=== PATIENT | female | born 1935 | race Caucasian/White ===

== ENCOUNTER 2020-08-16 14:16 | Outpatient (CLI) | payer MEDICARE ==
--- NOTE | 2020-08-16 16:04 | CT ---
Exam: Abdomen CT with and without contrast Pelvic CT with and without contrast HISTORY: Recurrent urinary tract infection and hematuria. Bladder lift. COMPARISON: None TECHNIQUE: Abdomen and pelvic CT is performed with and without contrast following urogram protocol. C oronal reformatted images are submitted for interpretation FINDINGS: Lung bases: Scattered groundglass opacities are nonspecific. Correlate patient's COVID status. Heart: Normal heart size. No significant pericardial fluid. Aorta: Normal caliber aorta. Scattered atherosclerotic disease. Liver: Appropriate enhancement. No enhancing masses. Spleen: Appropriate enhancement Pancreas: Appropriate enhancement Adrenal glands: Symmetric enhancement Lymph nodes: No gastrohepatic, retrocrural or periportal lymphadenopathy Portal vein: Patent Gallbladder: Unremarkable Kidneys: Noncontrast: Nonobstructing bilateral intrarenal calculi measuring 2 to 3 mm. No evidence of obstruct mindy uropathy. Contrast: Symmetric enhancement of the kidneys. There are no solid renal masses. Delayed: Symmetric excretion into a decompressed intrarenal and extrarenal collecting system. Contras t opacifies a good portion of the left and right ureter. No filling defects. Mesentery: No mass, nephropathy, free air or free fluid Alimentary canal: Limited evaluation of the alimentary canal by the lack of oral contrast. There is a moderate hiatal hernia. Multiple normal caliber small bowel loops. Normal ileocecal junction. Scattered fecal material in a nondistended, nondilated colon. Occasional diverticulum. No diverticuli tis. CT PELVIS: Reproductive organs and pelvis: Moderately enlarged prostate gland. Urinary bladder: There is a left-sided diverticulum, measuring 0.9 cm. There is mild enhancement of t he urinary bladder mucosa. On the delayed images, contrast is noted in the dependent portion of the urinary bladder. There is a linear hypodensity involving the bladder, starting along the posterior ba se of the bladder. The possibility of intraluminal lesion is raised. Cystoscopy is recommended. There is asymmetric thickening of the left mucosal and serosal margin of the bladder, at the level of the diverticulum. There are no lytic or blastic lesions in the osseous structures. 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 There is grade 1-2 anterolisthesis of L4 upon L5. There is mild leftward curvature of the lumbar spine. IMPRESSION: 1. Asymmetric mucosal prominence involving the left aspect of the urinary bladder. There appears to b e filling defect on the delayed images. Lesion within the lumen of the bladder cannot be excluded. Cystoscopy is recommended. 2. No evidence of enhancing masses in the left or right renal cortex. Bilaterally no obstructive urop athy. 3. Moderate hiatal hernia. Transcribed Date/Time: 08/16/2020 4:27 PM
== END 2020-08-16 14:17 | disposition home or self-care (01) ==
LOC: BICCT 14:16
PROVIDERS: ATTEND Urology
DX: N39.0 Urinary tract infection, site not specified (principal); R31.29 Other microscopic hematuria; K44.9 Diaphragmatic hernia without obstruction or gangrene
CPT/HCPCS: 74178; 82565

== ENCOUNTER 2022-03-30 12:56 | Inpatient (IN) | payer MEDICARE ==
[2022-03-30 13:44] LABS: #Eosinphils 0.1 thou/uL (0.0-0.7); #Lymphocytes 1.8 thou/uL (1.20-3.40); #Monocytes 1.4 thou/uL (0.11-0.59); #Neutrophils 6.5 thou/uL (1.40-6.50); %Basophils 0.2 % (0.0-1.0); %Eosinophils 0.9 % (0.0-10.0); %Neutrophils 66.9 % (42.0-75.0); Hemoglobin 12.4 g/dL (12.0-16.0); Mean Corpuscular HGB CONC 33.1 g/dL (32.0-36.0); Mean Corpuscular Hemoglobin 31.1 pg (27.0-31.0); Mean Corpuscular Volume 94.1 fL (78.0-98.0); Mean Platelet Volume 7.8 fL (7.4-10.4); Platelet Count 258 thou/uL (130-400); RBC Distribution Width 13.4 % (11.5-14.5); White Blood Cell (WBC) Count 9.7 thou/uL (4.8-10.8)
[2022-03-30 13:58] LABS: ALT (SGPT) 18 U/L (8-55); AST (SGOT) 11 U/L (5-34); Albumin 3.5 g/dL (3.4-4.8); Alkaline Phosphatase 78 U/L (40-110); Anion Gap 16 mmol/L (10-20); BUN (Urea Nitrogen) 32 mg/dL (9.8-20.1); Bilirubin, Total 0.3 mg/dL (0.2-1.2); Calc. Creatinine Clearance 0 mL/min (70-130); Calcium 9.8 mg/dL (7.8-10.44); Carbon Dioxide 19 mmol/L (23-31); Chloride 91 mmol/L (98-107); Estimated GFR 47; Globulin 3.6 g/dL (2.4-3.5); Glucose 240 mg/dL (83-110); Potassium 4.7 mmol/L (3.5-5.1); Protein, Total 7.1 g/dL (5.8-8.1); Sodium 121 mmol/L (136-145)
[2022-03-30 14:23] LABS: Bilirubin Negative (Negative); Blood, Urine 3+ (Negative); Clarity Extra Turbid (Clear); Glucose, Urine (Dipstick) 500 mg/dL (Negative); Ketone, Urine 10 mg/dL (Negative); Leukocyte 500 Leu/uL (Negative); Nitrite Negative (Negative); Protein, Urine (Dipstick) 100 mg/dL (Neg-Trace); Specific Gravity, Urine 1.016 (1.002-1.036); Urobilinogen Normal mg/dL (Less than 2); pH, Urine 6.5 (5.0-9.0)
[2022-03-30 14:33] LABS: Bacteria/HPF 2+ HPF (None Seen); Squamous Epithelial 0-3 HPF (0-3); WBC/HPF Greater Than 50 HPF (0-3)
[2022-03-30] MEDS ORDERED: Acetaminophen 500 MG TAB ONE (14:34)
[2022-03-30] MEDS ORDERED: cefTRIAXone\\ROCEPHIN 2 GM VIAL ONE (15:39)
[2022-03-30 15:45] LABS: SARS-CoV-2 NAA Rapid Test Not Detected (NotDetected)
[2022-03-30] MEDS ORDERED: Acetaminophen 650 MG Suppository PR PRN (15:54)
[2022-03-30] MEDS ORDERED: Ondansetron ODT 4 MG TAB PO PRN (15:54)
[2022-03-30] MEDS ORDERED: Ondansetron PF 4 MG/2 ML Vial IVP PRN (15:54)
[2022-03-30] MEDS ORDERED: Nystatin Powder 15 GM BOT TOP PRN (15:58)
[2022-03-30] MEDS ORDERED: Sodium Chloride 0.9% 1,000 ML IV SCH (16:00)
[2022-03-30 16:35] LABS: Sodium 123 mmol/L (136-145)
[2022-03-30 17:39] VITALS: BMI 27.8
[2022-03-30 18:38] LABS: Sodium, Urine 61 mmol/L (Not Available); Urea Nitrogen, Random Urine 419 mg/dl
[2022-03-30] MEDS: Heparin 5,000 UNITS/ML VIAL SC SCH (20:42)
[2022-03-30] MEDS: Miconazole 2% Cream 30 GM TUBE TOP SCH (20:45)
[2022-03-30] MEDS: Clotrimazole 2% 3 Day Vag Cr 22.2 GM TUBE VAG SCH (20:45)
[2022-03-30] MEDS ORDERED: Dextrose 50% Abboject 50 ML SYRINGE SLOW IVP PRN (21:32)
[2022-03-30] MEDS ORDERED: Dextrose 5% in Water 1,000 ML IV PRN (21:32)
[2022-03-30] MEDS: HumaLOG 300 UNITS/3 ML VIAL SC PRN (21:44)
[2022-03-30] MEDS: Acetaminophen 325 MG TAB PO PRN (21:45)
[2022-03-30 22:42] LABS: Sodium 124 mmol/L (136-145)
[2022-03-31] MEDS: HumaLOG 300 UNITS/3 ML VIAL SC PRN ×4 (05:18→21:11)
[2022-03-31 05:51] LABS: Anion Gap 14 mmol/L (10-20); BUN (Urea Nitrogen) 24 mg/dL (9.8-20.1); Calc. Creatinine Clearance 51 mL/min (70-130); Calcium 9.4 mg/dL (7.8-10.44); Carbon Dioxide 21 mmol/L (23-31); Chloride 94 mmol/L (98-107); Estimated GFR 63; Glucose 230 mg/dL (83-110); Potassium 4.2 mmol/L (3.5-5.1); Sodium 125 mmol/L (136-145)
[2022-03-31 06:02] LABS: Band 8 % (5-11); Eosinophils 1 % (0-10); Hemoglobin 12.8 g/dL (12.0-16.0); Lymphocytes 10 % (21-51); MDiff Complete? YES; Mean Corpuscular HGB CONC 32.6 g/dL (32.0-36.0); Mean Corpuscular Hemoglobin 30.5 pg (27.0-31.0); Mean Corpuscular Volume 93.5 fL (78.0-98.0); Mean Platelet Volume 7.9 fL (7.4-10.4); Monocytes 20 % (0-10); Neutrophil 59 % (42-75); Nucleated RBC 1 % (0); Platelet Count 273 thou/uL (130-400); Platelet Morphology Comment Appears Adequate; RBC Distribution Width 13.4 % (11.5-14.5); RBC Morphology Normal; Reactive Lymphocytes 2 % (0-10); Red Blood Cell (RBC) Count 4.19 mill/uL (4.20-5.40); White Blood Cell (WBC) Count 8.3 thou/uL (4.8-10.8)
[2022-03-31] MEDS: Fluconazole 100 MG TAB PO SCH (08:42)
[2022-03-31] MEDS: Heparin 5,000 UNITS/ML VIAL SC SCH ×2 (08:43→21:12)
[2022-03-31] MEDS: Acetaminophen 325 MG TAB PO PRN (08:44)
[2022-03-31] MEDS: Miconazole 2% Cream 30 GM TUBE TOP SCH ×2 (08:44→21:12)
[2022-03-31] MEDS ORDERED: HYDROcodone/Acetaminophen 5/325 mg Tablet PO PRN ×2 (09:28)
[2022-03-31] MEDS ORDERED: Primidone 50 MG TAB PO SCH (09:30)
[2022-03-31] MEDS ORDERED: Propranolol 10 MG TAB PO SCH (09:30)
[2022-03-31] MEDS ORDERED: Propranolol HCl LA 80 MG CAP PO SCH (09:30)
[2022-03-31 10:42] LABS: Sodium 124 mmol/L (136-145)
[2022-03-31] MEDS ORDERED: HYDROcodone/Acetaminophen 10/325 mg Tablet PO PRN (12:50)
[2022-03-31] MEDS: HYDROcodone/Acetaminophen 10/325 mg Tablet PO PRN ×2 (15:32→21:13)
[2022-03-31] MEDS: cefTRIAXone\\ROCEPHIN 1 GM in Sodium Chloride 0.9% 100 ML IVPB SCH (15:34)
[2022-03-31 18:14] LABS: Sodium 130 mmol/L (136-145)
[2022-03-31] MEDS: Clotrimazole 2% 3 Day Vag Cr 22.2 GM TUBE VAG SCH (21:11)
[2022-03-31] MEDS: Primidone 50 MG TAB PO SCH (21:12)
[2022-03-31] MEDS: traZODone HCl 50 MG TAB PO PRN (21:13)
[2022-03-31] MEDS: Propranolol 10 MG TAB PO SCH (21:29)
[2022-03-31 22:09] LABS: Sodium 129 mmol/L (136-145)
[2022-04-01 05:54] LABS: #Basophils 0.1 thou/uL (0.0-0.2); #Eosinphils 0.1 thou/uL (0.0-0.7); #Lymphocytes 1.8 thou/uL (1.20-3.40); #Monocytes 1.4 thou/uL (0.11-0.59); #Neutrophils 7.7 thou/uL (1.40-6.50); %Basophils 0.9 % (0.0-1.0); %Eosinophils 1.1 % (0.0-10.0); %Lymphocytes 16.4 % (21.0-51.0); %Monocytes 12.5 % (0.0-10.0); %Neutrophils 69.1 % (42.0-75.0); Hemoglobin 12.8 g/dL (12.0-16.0); Mean Corpuscular Hemoglobin 30.8 pg (27.0-31.0); Mean Corpuscular Volume 93.3 fL (78.0-98.0); Mean Platelet Volume 8.1 fL (7.4-10.4); Platelet Count 287 thou/uL (130-400); RBC Distribution Width 13.6 % (11.5-14.5); Red Blood Cell (RBC) Count 4.17 mill/uL (4.20-5.40); White Blood Cell (WBC) Count 11.1 thou/uL (4.8-10.8)
[2022-04-01] MEDS: HYDROcodone/Acetaminophen 10/325 mg Tablet PO PRN (06:06)
[2022-04-01 06:09] LABS: Anion Gap 15 mmol/L (10-20); BUN (Urea Nitrogen) 15 mg/dL (9.8-20.1); Calc. Creatinine Clearance 55 mL/min (70-130); Calcium 9.5 mg/dL (7.8-10.44); Carbon Dioxide 20 mmol/L (23-31); Chloride 96 mmol/L (98-107); Estimated GFR 69; Glucose 336 mg/dL (83-110); Potassium 4.4 mmol/L (3.5-5.1); Sodium 127 mmol/L (136-145)
[2022-04-01] MEDS: HumaLOG 300 UNITS/3 ML VIAL SC PRN ×2 (06:11→11:18)
[2022-04-01] MEDS: Acetaminophen 325 MG TAB PO PRN (08:13)
[2022-04-01] MEDS: Propranolol HCl LA 80 MG CAP PO SCH (08:58)
[2022-04-01] MEDS: Spironolactone 25 MG TAB PO SCH (08:58)
[2022-04-01] MEDS: Fluconazole 100 MG TAB PO SCH (08:58)
[2022-04-01] MEDS: Propranolol 10 MG TAB PO SCH ×2 (08:58→21:21)
[2022-04-01] MEDS: Aspirin Chewable 81 MG TAB PO SCH (08:58)
[2022-04-01] MEDS: Heparin 5,000 UNITS/ML VIAL SC SCH ×2 (08:58→21:22)
[2022-04-01] MEDS ORDERED: Simvastatin 10 MG TAB PO SCH (09:00)
[2022-04-01] MEDS: HYDROcodone/Acetaminophen 7.5/325 mg Tablet PO PRN ×3 (10:41→21:40)
[2022-04-01] MEDS: Miconazole 2% Cream 30 GM TUBE TOP SCH ×2 (10:45→21:27)
[2022-04-01] MEDS: Primidone 50 MG TAB PO SCH ×2 (11:11→21:22)
[2022-04-01] MEDS: cefTRIAXone\\ROCEPHIN 1 GM in Sodium Chloride 0.9% 100 ML IVPB SCH (14:19)
[2022-04-01] MEDS: traZODone HCl 50 MG TAB PO PRN (21:21)
[2022-04-01] MEDS: Clotrimazole 2% 3 Day Vag Cr 22.2 GM TUBE VAG SCH (21:26)
[2022-04-02] MEDS: HYDROcodone/Acetaminophen 7.5/325 mg Tablet PO PRN ×3 (04:48→20:56)
[2022-04-02 05:07] LABS: #Basophils 0.1 thou/uL (0.0-0.2); #Eosinphils 0.3 thou/uL (0.0-0.7); #Lymphocytes 2.6 thou/uL (1.20-3.40); #Monocytes 0.9 thou/uL (0.11-0.59); #Neutrophils 3.3 thou/uL (1.40-6.50); %Basophils 0.9 % (0.0-1.0); %Eosinophils 4.2 % (0.0-10.0); %Lymphocytes 35.8 % (21.0-51.0); %Monocytes 12.9 % (0.0-10.0); %Neutrophils 46.3 % (42.0-75.0); Mean Corpuscular HGB CONC 32.5 g/dL (32.0-36.0); Mean Corpuscular Hemoglobin 30.6 pg (27.0-31.0); Mean Corpuscular Volume 94.1 fL (78.0-98.0); Mean Platelet Volume 7.8 fL (7.4-10.4); Platelet Count 260 thou/uL (130-400); RBC Distribution Width 13.9 % (11.5-14.5); White Blood Cell (WBC) Count 7.2 thou/uL (4.8-10.8)
[2022-04-02 05:17] LABS: Anion Gap 19 mmol/L (10-20); BUN (Urea Nitrogen) 20 mg/dL (9.8-20.1); Calc. Creatinine Clearance 61 mL/min (70-130); Calcium 9.7 mg/dL (7.8-10.44); Carbon Dioxide 17 mmol/L (23-31); Chloride 99 mmol/L (98-107); Estimated GFR 78; Glucose 219 mg/dL (83-110); Potassium 4.7 mmol/L (3.5-5.1); Sodium 130 mmol/L (136-145)
[2022-04-02] MEDS: Fluconazole 100 MG TAB PO SCH (09:13)
[2022-04-02] MEDS: Spironolactone 25 MG TAB PO SCH (09:13)
[2022-04-02] MEDS: Propranolol HCl LA 80 MG CAP PO SCH (09:13)
[2022-04-02] MEDS: Aspirin Chewable 81 MG TAB PO SCH (09:13)
[2022-04-02] MEDS: Heparin 5,000 UNITS/ML VIAL SC SCH ×2 (09:14→20:58)
[2022-04-02] MEDS: Primidone 50 MG TAB PO SCH ×2 (09:52→20:56)
[2022-04-02] MEDS: Propranolol 10 MG TAB PO SCH ×2 (09:52→20:56)
[2022-04-02] MEDS: Miconazole 2% Cream 30 GM TUBE TOP SCH ×2 (09:53→20:58)
[2022-04-02] MEDS: HumaLOG 300 UNITS/3 ML VIAL SC PRN ×3 (11:29→20:58)
[2022-04-02] MEDS: cefTRIAXone\\ROCEPHIN 1 GM in Sodium Chloride 0.9% 100 ML IVPB SCH (14:30)
[2022-04-02] MEDS: Simvastatin 10 MG TAB PO SCH (20:56)
[2022-04-02] MEDS: traZODone HCl 50 MG TAB PO PRN (21:01)
[2022-04-03] MEDS: HYDROcodone/Acetaminophen 7.5/325 mg Tablet PO PRN ×3 (07:38→20:44)
[2022-04-03] MEDS: Heparin 5,000 UNITS/ML VIAL SC SCH ×2 (08:19→20:44)
[2022-04-03] MEDS: Fluconazole 100 MG TAB PO SCH (08:19)
[2022-04-03] MEDS: Propranolol 10 MG TAB PO SCH ×2 (08:19→20:43)
[2022-04-03] MEDS: Aspirin Chewable 81 MG TAB PO SCH (08:19)
[2022-04-03] MEDS: Spironolactone 25 MG TAB PO SCH (08:19)
[2022-04-03] MEDS: Propranolol HCl LA 80 MG CAP PO SCH (08:19)
[2022-04-03] MEDS: Primidone 50 MG TAB PO SCH ×2 (08:19→20:44)
[2022-04-03] MEDS: Miconazole 2% Cream 30 GM TUBE TOP SCH ×2 (08:21→20:46)
[2022-04-03] MEDS: Sodium Chloride 0.9% 1,000 ML IV SCH ×2 (10:45→23:58)
[2022-04-03] MEDS: HumaLOG 300 UNITS/3 ML VIAL SC PRN ×4 (11:05→20:45)
[2022-04-03] MEDS: Acetaminophen 325 MG TAB PO PRN (11:29)
[2022-04-03] MEDS: cefTRIAXone\\ROCEPHIN 1 GM in Sodium Chloride 0.9% 100 ML IVPB SCH (14:59)
[2022-04-03] MEDS: Simvastatin 10 MG TAB PO SCH (20:44)
[2022-04-03] MEDS: traZODone HCl 50 MG TAB PO PRN (20:44)
[2022-04-04] MEDS: HYDROcodone/Acetaminophen 7.5/325 mg Tablet PO PRN ×2 (04:31→13:32)
[2022-04-04 05:39] LABS: Anion Gap 12 mmol/L (10-20); BUN (Urea Nitrogen) 30 mg/dL (9.8-20.1); Calc. Creatinine Clearance 51 mL/min (70-130); Calcium 9.1 mg/dL (7.8-10.44); Carbon Dioxide 23 mmol/L (23-31); Chloride 101 mmol/L (98-107); Estimated GFR 63; Glucose 207 mg/dL (83-110); Potassium 4.4 mmol/L (3.5-5.1); Sodium 132 mmol/L (136-145)
[2022-04-04] MEDS: Miconazole 2% Cream 30 GM TUBE TOP SCH (08:32)
[2022-04-04] MEDS: Aspirin Chewable 81 MG TAB PO SCH (08:32)
[2022-04-04] MEDS: Fluconazole 100 MG TAB PO SCH (08:32)
[2022-04-04] MEDS: Propranolol HCl LA 80 MG CAP PO SCH (08:32)
[2022-04-04] MEDS: Heparin 5,000 UNITS/ML VIAL SC SCH (08:33)
[2022-04-04 08:53] VITALS: BP 102/64; TEMP 97.5
[2022-04-04] MEDS: Primidone 50 MG TAB PO SCH (08:53)
[2022-04-04] MEDS ORDERED: Propranolol HCl 20 MG TAB PO SCH (09:00)
[2022-04-04] MEDS: HumaLOG 300 UNITS/3 ML VIAL SC PRN (10:43)
[2022-04-04] MEDS: Sodium Chloride 0.9% 1,000 ML IV SCH (13:32)
[2022-04-04] MEDS: cefTRIAXone\\ROCEPHIN 1 GM in Sodium Chloride 0.9% 100 ML IVPB SCH (14:07)
== END 2022-04-04 19:30 | DRG 690 ==
LOC: ERS 12:56 → MSONC 15:10
PROVIDERS: ADMIT Internal Medicine; ATTEND Internal Medicine
DX: N13.6 Pyonephrosis (principal); E87.1 Hypo-osmolality and hyponatremia; Z51.5 Encounter for palliative care; Z20.822 Contact with and (suspected) exposure to COVID-19; B37.3 Candidiasis of vulva and vagina; E11.9 Type 2 diabetes mellitus without complications; G47.00 Insomnia, unspecified; G25.0 Essential tremor; Z95.0 Presence of cardiac pacemaker; Z88.2 Allergy status to sulfonamides; Z79.82 Long term (current) use of aspirin; Z79.84 Long term (current) use of oral hypoglycemic drugs
CPT/HCPCS: 36415; 36416; 70450; 74176; 80048; 80053; 81003; 81015; 82533; 83605; 83930; 83935; 84295; 84300; 84443; 84484; 84540; 84550; 84560; 85025; 87040; 87081; 87086; 87430; 93005; 97139; J0696; J1644; J1815; J3490; J7050; U0002

== ENCOUNTER 2022-04-09 14:17 | Inpatient (IN) | payer MEDICARE ==
[~2022-04-09 14:17] MED LIST: Iopamidol-370 76% 500 ML 1 ML ONE
[2022-04-09 16:19] LABS: ALT (SGPT) 20 U/L (8-55); AST (SGOT) 17 U/L (5-34); Albumin 3.1 g/dL (3.4-4.8); Alkaline Phosphatase 91 U/L (40-110); Anion Gap 16 mmol/L (10-20); BUN (Urea Nitrogen) 28 mg/dL (9.8-20.1); Bilirubin, Total 0.3 mg/dL (0.2-1.2); Calc. Creatinine Clearance 0 mL/min (70-130); Calcium 9.4 mg/dL (7.8-10.44); Carbon Dioxide 22 mmol/L (23-31); Chloride 93 mmol/L (98-107); Estimated GFR 64; Glucose 278 mg/dL (83-110); Potassium 4.6 mmol/L (3.5-5.1); Protein, Total 7.1 g/dL (5.8-8.1); Sodium 126 mmol/L (136-145)
[2022-04-09 16:31] LABS: #Basophils 0.1 thou/uL (0.0-0.2); #Eosinphils 0.1 thou/uL (0.0-0.7); #Lymphocytes 2.8 thou/uL (1.20-3.40); #Monocytes 1.2 thou/uL (0.11-0.59); #Neutrophils 12.7 thou/uL (1.40-6.50); %Basophils 0.3 % (0.0-1.0); %Eosinophils 0.8 % (0.0-10.0); %Lymphocytes 16.5 % (21.0-51.0); %Monocytes 7.3 % (0.0-10.0); %Neutrophils 75.1 % (42.0-75.0); Hemoglobin 12.5 g/dL (12.0-16.0); Mean Corpuscular HGB CONC 30.5 g/dL (32.0-36.0); Mean Corpuscular Hemoglobin 28.8 pg (27.0-31.0); Mean Corpuscular Volume 94.2 fL (78.0-98.0); Mean Platelet Volume 7.9 fL (7.4-10.4); Platelet Count 322 thou/uL (130-400); Red Blood Cell (RBC) Count 4.36 mill/uL (4.20-5.40)
[2022-04-09 16:32] LABS: Specific Gravity, Urine 1.015 (1.005-1.030)
[2022-04-09 16:37] LABS: Clarity Cloudy (Clear)
[2022-04-09 16:40] LABS: Bilirubin Unable to Interpret (Negative); Blood, Urine Unable to Interpret (Negative); Glucose, Urine (Dipstick) Unable to Interpret mg/dL (Negative); Ketone, Urine Unable to Interpret mg/dL (Negative); Leukocyte Unable to Interpret (Negative); Nitrite Unable to Interpret (Negative); Protein, Urine (Dipstick) Unable to Interpret mg/dL (Neg-Trace); Urobilinogen UNABLE TO INTERPRET mg/dL (Less than 2)
[2022-04-09 16:41] LABS: Bacteria/HPF None Seen HPF (None Seen); RBC/HPF Greater than 50 HPF (0-3); Squamous Epithelial None Seen HPF (0-3); WBC/HPF 0-3 HPF (0-3)
[2022-04-09] MEDS ORDERED: Morphine 4 MG/ML VIAL ONE (19:00)
[2022-04-09] MEDS ORDERED: hydrALAZINE 20 MG/ML VIAL SLOW IVP PRN (19:58)
[2022-04-09] MEDS ORDERED: Morphine 4 MG/ML VIAL SLOW IVP PRN (19:58)
[2022-04-09] MEDS ORDERED: Electrolyte Replacement Protocol 1 EACH FS SCH (20:00)
[2022-04-09] MEDS ORDERED: Dextrose 5% in Water 1,000 ML IV PRN (20:17)
[2022-04-09] MEDS ORDERED: Dextrose 50% Abboject 50 ML SYRINGE SLOW IVP PRN (20:17)
[2022-04-09] MEDS ORDERED: Ondansetron ODT 4 MG TAB PO PRN (20:18)
[2022-04-09] MEDS ORDERED: Ondansetron PF 4 MG/2 ML Vial IVP PRN (20:18)
[2022-04-09] MEDS ORDERED: Nystatin Powder 15 GM BOT TOP PRN (20:20)
[2022-04-09] MEDS ORDERED: Morphine 2 MG/ML VIAL SLOW IVP PRN (20:25)
[2022-04-09] MEDS ORDERED: Sodium Chloride 0.9% 1,000 ML IV SCH (20:30)
[2022-04-09] MEDS ORDERED: Miconazole 2% Cream 30 GM TUBE TOP SCH (21:00)
[2022-04-09 21:06] LABS: Bacteria/HPF None Seen HPF (None Seen); Bilirubin Negative (Negative); Blood, Urine 3+ (Negative); Clarity Turbid (Clear); Glucose, Urine (Dipstick) Normal (Negative); Ketone, Urine Negative (Negative); Leukocyte 25 Leu/uL (Negative); Nitrite Negative (Negative); Protein, Urine (Dipstick) Negative (Neg-Trace); RBC/HPF Greater than 50 HPF (0-3); Specific Gravity, Urine 1.006 (1.002-1.036); Squamous Epithelial None Seen HPF (0-3); Urobilinogen Normal mg/dL (Less than 2); WBC/HPF 0-3 HPF (0-3)
[2022-04-09] MEDS: HYDROcodone/Acetaminophen 5/325 mg Tablet PO PRN (21:59)
[2022-04-09] MEDS: Primidone 50 MG TAB PO SCH (22:01)
[2022-04-09 22:53] VITALS: BMI 26.8
[2022-04-10] MEDS: HumaLOG 300 UNITS/3 ML VIAL SC PRN ×2 (06:41→20:36)
[2022-04-10 06:48] LABS: #Basophils 0.1 thou/uL (0.0-0.2); #Eosinphils 0.2 thou/uL (0.0-0.7); #Lymphocytes 1.7 thou/uL (1.20-3.40); #Monocytes 0.9 thou/uL (0.11-0.59); #Neutrophils 9.5 thou/uL (1.40-6.50); %Basophils 0.5 % (0.0-1.0); %Eosinophils 1.6 % (0.0-10.0); %Lymphocytes 14.1 % (21.0-51.0); %Monocytes 7.1 % (0.0-10.0); %Neutrophils 76.8 % (42.0-75.0); Hemoglobin 12.1 g/dL (12.0-16.0); Mean Corpuscular HGB CONC 31.8 g/dL (32.0-36.0); Mean Corpuscular Hemoglobin 30.5 pg (27.0-31.0); Mean Platelet Volume 8.1 fL (7.4-10.4); Platelet Count 296 thou/uL (130-400); RBC Distribution Width 14.1 % (11.5-14.5); Red Blood Cell (RBC) Count 3.97 mill/uL (4.20-5.40); White Blood Cell (WBC) Count 12.4 thou/uL (4.8-10.8)
[2022-04-10 07:23] LABS: Anion Gap 12 mmol/L (10-20); BUN (Urea Nitrogen) 21 mg/dL (9.8-20.1); Calc. Creatinine Clearance 57 mL/min (70-130); Carbon Dioxide 23 mmol/L (23-31); Chloride 100 mmol/L (98-107); Estimated GFR 77; Glucose 234 mg/dL (83-110); Potassium 4.4 mmol/L (3.5-5.1); Sodium 131 mmol/L (136-145)
[2022-04-10] MEDS: Miconazole 2% Vaginal Cream 45 GM TUBE TOP SCH ×2 (08:29→20:30)
[2022-04-10] MEDS: Fluconazole 100 MG TAB PO SCH (08:30)
[2022-04-10] MEDS: Simvastatin 10 MG TAB PO SCH (08:30)
[2022-04-10] MEDS: Primidone 50 MG TAB PO SCH ×2 (08:30→20:31)
[2022-04-10] MEDS: HYDROcodone/Acetaminophen 5/325 mg Tablet PO PRN (13:05)
[2022-04-10] MEDS ORDERED: cefTRIAXone\\ROCEPHIN 2 GM in Sodium Chloride 0.9% 100 ML IVPB SCH (14:00)
[2022-04-11] MEDS: HYDROcodone/Acetaminophen 5/325 mg Tablet PO PRN ×3 (01:10→19:43)
[2022-04-11] MEDS: HumaLOG 300 UNITS/3 ML VIAL SC PRN ×2 (05:39→19:44)
[2022-04-11 06:31] LABS: #Eosinphils 0.1 thou/uL (0.0-0.7); #Lymphocytes 1.3 thou/uL (1.20-3.40); #Monocytes 1.2 thou/uL (0.11-0.59); #Neutrophils 13.1 thou/uL (1.40-6.50); %Eosinophils 0.5 % (0.0-10.0); %Lymphocytes 8.1 % (21.0-51.0); %Monocytes 7.4 % (0.0-10.0); %Neutrophils 83.9 % (42.0-75.0); Hemoglobin 12.2 g/dL (12.0-16.0); Mean Corpuscular HGB CONC 31.9 g/dL (32.0-36.0); Mean Corpuscular Hemoglobin 30.5 pg (27.0-31.0); Mean Corpuscular Volume 95.7 fL (78.0-98.0); Mean Platelet Volume 8.2 fL (7.4-10.4); Platelet Count 304 thou/uL (130-400); RBC Distribution Width 14.1 % (11.5-14.5); White Blood Cell (WBC) Count 15.6 thou/uL (4.8-10.8)
[2022-04-11 06:45] LABS: ALT (SGPT) 23 U/L (8-55); AST (SGOT) 17 U/L (5-34); Alkaline Phosphatase 87 U/L (40-110); Anion Gap 14 mmol/L (10-20); BUN (Urea Nitrogen) 18 mg/dL (9.8-20.1); Bilirubin, Total 0.5 mg/dL (0.2-1.2); Calc. Creatinine Clearance 60 mL/min (70-130); Calcium 9.2 mg/dL (7.8-10.44); Carbon Dioxide 23 mmol/L (23-31); Chloride 101 mmol/L (98-107); Estimated GFR 82; Globulin 3.8 g/dL (2.4-3.5); Glucose 249 mg/dL (83-110); Magnesium 1.7 mg/dL (1.6-2.6); Potassium 4.5 mmol/L (3.5-5.1); Protein, Total 6.8 g/dL (5.8-8.1); Sodium 133 mmol/L (136-145)
[2022-04-11 06:51] LABS: Phosphorus 2.5 mg/dL (2.3-4.7)
[2022-04-11] MEDS ORDERED: Magnesium 2 GM/50 ML(in water) 2 GM in Premix Bag 1 BAG IVPB SCH (08:00)
[2022-04-11] MEDS: Primidone 50 MG TAB PO SCH ×2 (08:23→19:44)
[2022-04-11] MEDS: Famotidine 20 MG TAB PO SCH (08:23)
[2022-04-11] MEDS: Fluconazole 100 MG TAB PO SCH (08:23)
[2022-04-11] MEDS: Simvastatin 10 MG TAB PO SCH (08:23)
[2022-04-11] MEDS: Miconazole 2% Vaginal Cream 45 GM TUBE TOP SCH ×2 (08:24→21:19)
[2022-04-11] MEDS: Acetaminophen 325 MG TAB PO PRN (08:24)
[2022-04-11] MEDS ORDERED: Morphine 2 MG/ML VIAL SLOW IVP PRN ×2 (10:13→10:51)
[2022-04-11] MEDS ORDERED: traZODone HCl 50 MG TAB PO PRN (10:16)
[2022-04-11] MEDS ORDERED: Fentanyl 100 MCG/2 ML VIAL ONE (10:53)
[2022-04-11] MEDS ORDERED: SUGAMMADEX SODIUM 200 MG/2 ML VIAL ONE (10:54)
[2022-04-11] MEDS ORDERED: Dexamethasone 20 MG/5 ML VIAL ONE (12:15)
[2022-04-11] MEDS ORDERED: Ondansetron PF 4 MG/2 ML Vial ONE (12:15)
[2022-04-11] MEDS ORDERED: Phenylephrine 10 MG/ML VIAL ONE (12:15)
[2022-04-11] MEDS ORDERED: Lidocaine 1% MPF 2 ML VIAL ONE (12:15)
[2022-04-11] MEDS ORDERED: PROPOFOL 200 MG/20 ML VIAL ONE (12:15)
[2022-04-11] MEDS ORDERED: Promethazine HCl 25 MG/ML VIAL IM PRN (13:16)
[2022-04-11] MEDS ORDERED: Promethazine HCl 25 MG/ML VIAL IVPB PRN (13:16)
[2022-04-11] MEDS ORDERED: Ondansetron HCl/PF 4 MG/2 ML Vial IVP PRN (13:16)
[2022-04-11] MEDS: cefTRIAXone\\ROCEPHIN 1 GM in Sodium Chloride 0.9% 100 ML IVPB SCH (13:26)
[2022-04-11] MEDS ORDERED: cefTRIAXone\\ROCEPHIN 2 GM in Sodium Chloride 0.9% 100 ML IVPB SCH (14:00)
[2022-04-11] MEDS ORDERED: Propranolol 10 MG TAB PO SCH (21:00)
[2022-04-12] MEDS: HumaLOG 300 UNITS/3 ML VIAL SC PRN ×4 (05:29→19:59)
[2022-04-12 07:13] LABS: #Eosinphils 0.1 thou/uL (0.0-0.7); #Lymphocytes 1.3 thou/uL (1.20-3.40); #Monocytes 1.1 thou/uL (0.11-0.59); #Neutrophils 14.2 thou/uL (1.40-6.50); %Basophils 0.1 % (0.0-1.0); %Eosinophils 0.5 % (0.0-10.0); %Lymphocytes 7.9 % (21.0-51.0); %Monocytes 6.5 % (0.0-10.0); %Neutrophils 85.1 % (42.0-75.0); Hemoglobin 12.5 g/dL (12.0-16.0); Mean Corpuscular HGB CONC 30.6 g/dL (32.0-36.0); Mean Corpuscular Hemoglobin 29.9 pg (27.0-31.0); Mean Corpuscular Volume 97.9 fL (78.0-98.0); Mean Platelet Volume 8.9 fL (7.4-10.4); Platelet Count 255 thou/uL (130-400); RBC Distribution Width 14.5 % (11.5-14.5); Red Blood Cell (RBC) Count 4.17 mill/uL (4.20-5.40); White Blood Cell (WBC) Count 16.7 thou/uL (4.8-10.8)
[2022-04-12 08:01] LABS: ALT (SGPT) 30 U/L (8-55); AST (SGOT) 27 U/L (5-34); Albumin 2.8 g/dL (3.4-4.8); Alkaline Phosphatase 90 U/L (40-110); Anion Gap 16 mmol/L (10-20); BUN (Urea Nitrogen) 19 mg/dL (9.8-20.1); Bilirubin, Total 0.4 mg/dL (0.2-1.2); Calc. Creatinine Clearance 60 mL/min (70-130); Calcium 9.4 mg/dL (7.8-10.44); Carbon Dioxide 18 mmol/L (23-31); Chloride 106 mmol/L (98-107); Estimated GFR 82; Globulin 4.5 g/dL (2.4-3.5); Glucose 207 mg/dL (83-110); Phosphorus 2.6 mg/dL (2.3-4.7); Potassium 5.7 mmol/L (3.5-5.1); Protein, Total 7.3 g/dL (5.8-8.1); Sodium 134 mmol/L (136-145)
[2022-04-12] MEDS: Primidone 50 MG TAB PO SCH ×2 (08:41→19:55)
[2022-04-12] MEDS: Simvastatin 10 MG TAB PO SCH (08:42)
[2022-04-12] MEDS: Famotidine 20 MG TAB PO SCH (08:42)
[2022-04-12] MEDS: Acetaminophen 325 MG TAB PO PRN ×3 (08:42→23:40)
[2022-04-12] MEDS: Fluconazole 100 MG TAB PO SCH (08:42)
[2022-04-12] MEDS: Miconazole 2% Vaginal Cream 45 GM TUBE TOP SCH ×2 (08:44→20:03)
[2022-04-12] MEDS ORDERED: Propranolol HCl LA 80 MG CAP PO SCH (09:00)
[2022-04-12] MEDS ORDERED: FLUCONAZOLE 150 MG PO SCH (09:00)
[2022-04-12] MEDS ORDERED: Non-Formulary Item 1 EACH (Omeprazole [Omeprazole] 20 MG Capsule.Dr) PO SCH (09:00)
[2022-04-12] MEDS ORDERED: Insulin Regular 300 UNITS/3 ML VIAL IVP SCH (09:45)
[2022-04-12] MEDS ORDERED: Dextrose 50% Abboject 50 ML SYRINGE SLOW IVP SCH (09:45)
[2022-04-12] MEDS: cefTRIAXone\\ROCEPHIN 1 GM in Sodium Chloride 0.9% 100 ML IVPB SCH (11:44)
[2022-04-12] MEDS: HYDROcodone/Acetaminophen 5/325 mg Tablet PO PRN (12:02)
[2022-04-12] MEDS ORDERED: Magnesium 2 GM/50 ML(in water) 2 GM in Premix Bag 1 BAG IVPB SCH ×2 (13:00→23:45)
[2022-04-12] MEDS: Trospium 20 MG TAB PO SCH (19:55)
[2022-04-12] MEDS ORDERED: Sodium Chloride 0.9% 500 ML IV SCH (22:15)
[2022-04-12 22:27] LABS: Hemoglobin 10.1 g/dL (12.0-16.0); Mean Corpuscular HGB CONC 32.6 g/dL (32.0-36.0); Mean Corpuscular Volume 95.1 fL (78.0-98.0); Mean Platelet Volume 8.1 fL (7.4-10.4); Platelet Count 256 thou/uL (130-400); Red Blood Cell (RBC) Count 3.26 mill/uL (4.20-5.40); White Blood Cell (WBC) Count 18.1 thou/uL (4.8-10.8)
[2022-04-12 22:41] LABS: Band 14 % (5-11); Lymphocytes 10 % (21-51); MDiff Complete? YES; Monocytes 8 % (0-10); Neutrophil 68 % (42-75)
[2022-04-12 22:46] LABS: Anion Gap 12 mmol/L (10-20); BUN (Urea Nitrogen) 21 mg/dL (9.8-20.1); Calc. Creatinine Clearance 58 mL/min (70-130); Calcium 8.6 mg/dL (7.8-10.44); Carbon Dioxide 23 mmol/L (23-31); Chloride 102 mmol/L (98-107); Estimated GFR 79; Glucose 259 mg/dL (83-110); Magnesium 1.8 mg/dL (1.6-2.6); Potassium 3.8 mmol/L (3.5-5.1); Sodium 133 mmol/L (136-145)
[2022-04-13] MEDS: HumaLOG 300 UNITS/3 ML VIAL SC PRN ×3 (04:45→16:59)
[2022-04-13 06:41] LABS: Hemoglobin A1c 7.9 % (4.0-6.0)
[2022-04-13 06:45] LABS: Hemoglobin 10.1 g/dL (12.0-16.0); Mean Corpuscular HGB CONC 32.7 g/dL (32.0-36.0); Mean Corpuscular Hemoglobin 31.4 pg (27.0-31.0); Mean Corpuscular Volume 96.2 fL (78.0-98.0); Mean Platelet Volume 8.4 fL (7.4-10.4); Platelet Count 243 thou/uL (130-400); RBC Distribution Width 14.1 % (11.5-14.5); Red Blood Cell (RBC) Count 3.21 mill/uL (4.20-5.40); White Blood Cell (WBC) Count 15.5 thou/uL (4.8-10.8)
[2022-04-13 07:01] LABS: Anion Gap 11 mmol/L (10-20); BUN (Urea Nitrogen) 17 mg/dL (9.8-20.1); Calc. Creatinine Clearance 60 mL/min (70-130); Calcium 8.5 mg/dL (7.8-10.44); Carbon Dioxide 22 mmol/L (23-31); Chloride 101 mmol/L (98-107); Estimated GFR 82; Glucose 232 mg/dL (83-110); Potassium 3.6 mmol/L (3.5-5.1); Sodium 130 mmol/L (136-145)
[2022-04-13] MEDS: Primidone 50 MG TAB PO SCH ×2 (08:27→20:42)
[2022-04-13] MEDS: Trospium 20 MG TAB PO SCH ×2 (08:27→20:42)
[2022-04-13] MEDS: Simvastatin 10 MG TAB PO SCH (08:27)
[2022-04-13] MEDS: Fluconazole 100 MG TAB PO SCH (08:27)
[2022-04-13] MEDS: Miconazole 2% Vaginal Cream 45 GM TUBE TOP SCH ×3 (08:28→20:43)
[2022-04-13] MEDS: Famotidine 20 MG TAB PO SCH (08:28)
[2022-04-13] MEDS ORDERED: Polyethylene Glycol 3350 17 GM Packet PO SCH (11:15)
[2022-04-13] MEDS ORDERED: Piperacillin/Tazobactam 3.375 GM in Sodium Chloride 0.9% 100 ML IVPB SCH ×3 (11:30→16:00)
[2022-04-13] MEDS: HYDROcodone/Acetaminophen 5/325 mg Tablet PO PRN (12:42)
[2022-04-13] MEDS: Acetaminophen 325 MG TAB PO PRN (15:36)
[2022-04-13] MEDS: cefTRIAXone\\ROCEPHIN 2 GM in Sodium Chloride 0.9% 100 ML IVPB SCH (15:39)
[2022-04-13] MEDS: metFORMIN 500 MG TAB PO SCH (16:57)
[2022-04-13] MEDS ORDERED: Insulin Glargine 30 UNITS/0.3 ML VIAL SC SCH (21:00)
[2022-04-14] MEDS: Acetaminophen 325 MG TAB PO PRN (00:23)
[2022-04-14] MEDS: HumaLOG 300 UNITS/3 ML VIAL SC PRN ×2 (05:41→17:38)
[2022-04-14] MEDS: Primidone 50 MG TAB PO SCH ×2 (08:39→21:55)
[2022-04-14] MEDS: Trospium 20 MG TAB PO SCH ×2 (08:39→21:55)
[2022-04-14] MEDS: Fluconazole 100 MG TAB PO SCH (08:39)
[2022-04-14] MEDS: Saccharomyces boulardii 250 MG CAP PO SCH (08:39)
[2022-04-14] MEDS: Simvastatin 10 MG TAB PO SCH (08:39)
[2022-04-14] MEDS: Insulin Glargine 30 UNITS/0.3 ML VIAL SC SCH (08:40)
[2022-04-14] MEDS: metFORMIN 500 MG TAB PO SCH ×2 (08:40→17:37)
[2022-04-14] MEDS: Polyethylene Glycol 3350 17 GM Packet PO SCH (08:41)
[2022-04-14] MEDS: Miconazole 2% Vaginal Cream 45 GM TUBE TOP SCH ×2 (08:41→22:28)
[2022-04-14] MEDS: cefTRIAXone\\ROCEPHIN 2 GM in Sodium Chloride 0.9% 100 ML IVPB SCH (15:13)
[2022-04-14] MEDS ORDERED: Insulin Glargine 30 UNITS/0.3 ML VIAL SC SCH (19:09)
[2022-04-15] MEDS: HumaLOG 300 UNITS/3 ML VIAL SC PRN ×2 (05:34→12:14)
[2022-04-15 07:03] LABS: #Eosinphils 0.1 thou/uL (0.0-0.7); #Lymphocytes 1.3 thou/uL (1.20-3.40); #Monocytes 0.7 thou/uL (0.11-0.59); #Neutrophils 8.3 thou/uL (1.40-6.50); %Basophils 0.1 % (0.0-1.0); %Eosinophils 0.7 % (0.0-10.0); %Lymphocytes 12.6 % (21.0-51.0); %Monocytes 6.3 % (0.0-10.0); %Neutrophils 80.3 % (42.0-75.0); Hemoglobin 10.4 g/dL (12.0-16.0); Mean Corpuscular HGB CONC 31.5 g/dL (32.0-36.0); Mean Corpuscular Volume 95.2 fL (78.0-98.0); Mean Platelet Volume 8.6 fL (7.4-10.4); Platelet Count 272 thou/uL (130-400); RBC Distribution Width 14.1 % (11.5-14.5); Red Blood Cell (RBC) Count 3.48 mill/uL (4.20-5.40); White Blood Cell (WBC) Count 10.4 thou/uL (4.8-10.8)
[2022-04-15 07:19] LABS: Anion Gap 11 mmol/L (10-20); BUN (Urea Nitrogen) 15 mg/dL (9.8-20.1); Calc. Creatinine Clearance 63 mL/min (70-130); Calcium 8.7 mg/dL (7.8-10.44); Carbon Dioxide 25 mmol/L (23-31); Chloride 101 mmol/L (98-107); Estimated GFR 85; Glucose 200 mg/dL (83-110); Potassium 3.3 mmol/L (3.5-5.1); Sodium 134 mmol/L (136-145)
[2022-04-15 07:48] VITALS: BP 103/71; TEMP 98.6
[2022-04-15] MEDS: Saccharomyces boulardii 250 MG CAP PO SCH (08:51)
[2022-04-15] MEDS: metFORMIN 500 MG TAB PO SCH (08:51)
[2022-04-15] MEDS: Fluconazole 100 MG TAB PO SCH (08:51)
[2022-04-15] MEDS: Trospium 20 MG TAB PO SCH (08:51)
[2022-04-15] MEDS: Simvastatin 10 MG TAB PO SCH (08:51)
[2022-04-15] MEDS: Primidone 50 MG TAB PO SCH (08:51)
[2022-04-15] MEDS: Polyethylene Glycol 3350 17 GM Packet PO SCH (08:51)
[2022-04-15] MEDS: Insulin Glargine 30 UNITS/0.3 ML VIAL SC SCH (08:52)
[2022-04-15] MEDS: Miconazole 2% Vaginal Cream 45 GM TUBE TOP SCH (08:53)
[2022-04-15] MEDS ORDERED: Potassium Chloride 20 MEQ TAB PO SCH (09:30)
[2022-04-15] MEDS ORDERED: Propranolol HCl LA 60 MG CAP PO SCH (12:45)
[2022-04-15] MEDS ORDERED: Cefepime 2 GM in Sodium Chloride 0.9% 100 ML IVPB SCH (13:00)
[2022-04-15] MEDS ORDERED: Insulin Glargine 30 UNITS/0.3 ML VIAL SC SCH (21:00)
[2022-04-16] MEDS ORDERED: Propranolol HCl LA 60 MG CAP PO SCH (09:00)
== END 2022-04-15 15:47 | DRG 660 ==
LOC: ERS 14:17 → T4-B 19:40 → OBSVTOIN 04-10 12:03
PROVIDERS: ADMIT Internal Medicine; ATTEND Family Medicine
PROC: 0T768DZ Dilation of Right Ureter with Intraluminal Device, Via Natural or Artificial Opening Endoscopic (ICD-10-PCS; principal; 2022-04-11)
PROC: 0TBB8ZZ Excision of Bladder, Via Natural or Artificial Opening Endoscopic (ICD-10-PCS; 2022-04-11)
PROC: BT1D1ZZ Fluoroscopy of Right Kidney, Ureter and Bladder using Low Osmolar Contrast (ICD-10-PCS; 2022-04-11)
PROC: 02HV33Z Insertion of Infusion Device into Superior Vena Cava, Percutaneous Approach (ICD-10-PCS; 2022-04-14)
DX: N13.6 Pyonephrosis (principal); E87.1 Hypo-osmolality and hyponatremia; R31.0 Gross hematuria; I10 Essential (primary) hypertension; E78.5 Hyperlipidemia, unspecified; G25.0 Essential tremor; I87.2 Venous insufficiency (chronic) (peripheral); K21.9 Gastro-esophageal reflux disease without esophagitis; R53.1 Weakness; N76.0 Acute vaginitis; E11.65 Type 2 diabetes mellitus with hyperglycemia; K59.00 Constipation, unspecified; E87.5 Hyperkalemia; D64.9 Anemia, unspecified; N32.89 Other specified disorders of bladder; R53.81 Other malaise; B96.5 Pseudomonas (aeruginosa) (mallei) (pseudomallei) as the cause of diseases classified elsewhere; K44.9 Diaphragmatic hernia without obstruction or gangrene; M47.816 Spondylosis without myelopathy or radiculopathy, lumbar region; Z90.710 Acquired absence of both cervix and uterus; Z79.4 Long term (current) use of insulin; Z95.0 Presence of cardiac pacemaker; Z88.2 Allergy status to sulfonamides; Z79.82 Long term (current) use of aspirin; Z79.899 Other long term (current) drug therapy; Z98.890 Other specified postprocedural states
CPT/HCPCS: 36415; 36416; 36569; 74177; 74420; 80048; 80053; 81003; 81015; 83036; 83605; 83690; 83735; 84100; 85025; 85027; 87040; 87077; 87086; 87186; 88305; 96374; 96376; 97139; C2617; G0378; J0692; J0696; J1100; J1815; J2270; J2370; J2405; J2543; J2704; J3010; J3475; J3490; J7030; J7050; J7999; Q9967; U0003; U0005